=== PATIENT | female | born 1955 | race Caucasian/White ===

== ENCOUNTER 2020-05-24 15:39 | Outpatient (REF) | payer OTHER, SELFPAY ==
--- NOTE | ~2020-05-24 | MM_ITS ---
EXAMINATION: MM SCREENING DIGITAL BREAST TOMOSYNTHESIS, BILATERAL CLINICAL INFORMATION: Screening. Asymptomatic. The lifetime risk of breast cancer based on the Tyrer-Cuzick Model is 3%. COMPARISON: Mammography: 05/19/2019, 05/06/2018 TECHNIQUE: Digital breast tomosynthesis is performed in both the craniocaudal and mediolateral oblique views along with computer-aided detection (CAD). Synthesized 2D images are generated from the tomosynthesis. FINDINGS: There are scattered areas of fibroglandular density (ACR BI-RADS breast composition Category b). There are no significant masses, abnormal calcifications, or other abnormalities. Skin contours are unremarkable. No significant changes. MM/MM tomosynthesis screening BI IMPRESSION: No mammographic evidence of malignancy. ASSESSMENT: BI-RADS 1: Negative RECOMMENDATION: Routine annual mammography screening. This patient's information was entered into a reminder system with a target due date for their next mammogram.
== END 2020-05-24 15:40 | disposition home or self-care (01) ==
LOC: HO.MAMMO 15:39
PROVIDERS: Visit Provider Physician Assistant Medical
DX: Z12.31 Encounter for screening mammogram for malignant neoplasm of breast (principal)
CPT/HCPCS: 77063; 77067

== ENCOUNTER 2020-10-25 10:24 | Outpatient (REF) | payer MEDICARE, SELFPAY ==
--- NOTE | ~2020-10-25 | MM_ITS ---
EXAMINATION: BONE DENSITOMETRY CLINICAL INDICATION: Osteoporosis. COMPARISON: Previous BD dated 01/01/2009 and baseline BD dated 03/12/2005. TECHNIQUE: Using a [employer] DXA System (software version: 13.1) manufactured by [employer], dual-energy x-ray absorptiometry was performed of the lumbar spine and left hip. The images are of good technical quality. Summary results are attached. FINDINGS: AP SPINE L1-L4: Current: BMD 1.111 g/cm2, Z-score 1.1, T-score -0.6, normal, 8.6% decrease from previous, 8.5% decrease from baseline (<5% change is not significant). Prior: BMD 1.216 g/cm2. Baseline: BMD 1.214 g/cm2. LEFT FEMUR, NECK: Current: BMD 0.806 g/cm2, Z-score -0.1, T-score -1.7, osteopenia. Prior: BMD 0.933 g/cm2. Baseline: BMD 0.966 g/cm2. LEFT FEMUR, TOTAL: Current: BMD 0.858 g/cm2, Z-score 0.1, T-score -1.2, osteopenia, 11.3% decrease from previous, 12.3% decrease from baseline (<5% change is not significant). Prior: BMD 0.967 g/cm2. Baseline: BMD 0.978 g/cm2. IDENTIFIED RISK FACTORS: Early menopause, secondary osteoporosis, family history (parental hip fracture), thiazide, hysterectomy. HISTORY OF FRACTURE: None listed. MEDICATIONS: Calcium supplements or multivitamin, vitamin D. MM/XR DEXA axial skeleton IMPRESSION: 1. DIAGNOSIS: Osteopenia based on the lowest T-score value of -1.7 in the femoral neck applying World Health Organization criteria. 2. 10-YEAR FRACTURE RISK PREDICTION, FRAX: Major osteoporotic fracture (clinical spine, forearm, hip or shoulder) 17.3%. Hip fracture 1.8%. 3. Treatment Recommendations: NOF guidelines recommend consideration for treatment in postmenopausal women and men age 50 and older presenting with the following: -A hip or vertebral (clinical or morphometric) fracture. -T-score less than or equal to -2.5 at the femoral neck or spine after appropriate evaluation to exclude secondary causes. -Low bone mass at the hip or spine and a 10-year fracture probability by FRAX of greater than or equal to 3% for hip fracture or greater than or equal to 20% for major osteoporotic fracture based on the [place] adapted WHO algorithm. 4. Other Recommendations: All treatment decisions require clinical judgment and consideration of individual patient factors, including patient preferences, comorbidities, previous drug use, risk factors not captured in the FRAX model (e.g. frailty, falls, vitamin D deficiency, increased bone turnover, interval significant decline in bone density) and possible under or overestimation of fracture risk by FRAX. Additional medical evaluation for secondary cause of low bone mineral density may be appropriate. FUTURE SCAN RECOMMENDATION: People with diagnosed cases of osteoporosis or at high risk for fracture should have regular bone mineral density tests. For patients eligible for Medicare, routine testing is allowed once every 2 years. The testing frequency can be increased to one year for patients who have rapidly progressing disease, those who are receiving or discontinuing medical therapy to restore bone mass, or have additional risk factors.
== END 2020-10-25 10:25 | disposition home or self-care (01) ==
LOC: HO.MAMMO 10:24
PROVIDERS: Visit Provider Obstetrics & Gynecology
DX: Z13.820 Encounter for screening for osteoporosis (principal); Z78.0 Asymptomatic menopausal state; Z90.710 Acquired absence of both cervix and uterus; Z79.899 Other long term (current) drug therapy
CPT/HCPCS: 77080

== ENCOUNTER 2021-07-18 08:14 | Outpatient (REF) | payer MEDICARE, SELFPAY ==
--- NOTE | ~2021-07-18 | MM_ITS ---
EXAMINATION: MM SCREENING DIGITAL BREAST TOMOSYNTHESIS, BILATERAL CLINICAL INFORMATION: Screening. Asymptomatic. The lifetime risk of breast cancer based on the Tyrer-Cuzick Model is 4%. COMPARISON: Mammography: 05/24/2020, 05/19/2019, 05/06/2018 TECHNIQUE: Digital breast tomosynthesis is performed in both the craniocaudal and mediolateral oblique views along with computer-aided detection (CAD). Synthesized 2D images are generated from the tomosynthesis. Additional bilateral MLO views are provided. FINDINGS: There are scattered areas of fibroglandular density (ACR BI-RADS breast composition Category b). There are no significant masses, abnormal calcifications, or other abnormalities. The axilla and skin contours are unremarkable. MM/MM tomosynthesis screening BI IMPRESSION: No mammographic evidence of malignancy. ASSESSMENT: BI-RADS 1: Negative RECOMMENDATION: Routine annual mammography screening. This patient's information was entered into a reminder system with a target due date for their next mammogram.
== END 2021-07-18 08:15 | disposition home or self-care (01) ==
LOC: HO.MAMMO 08:14
PROVIDERS: PCP Family Medicine; Visit Provider Physician Assistant Medical
DX: Z12.31 Encounter for screening mammogram for malignant neoplasm of breast (principal)
CPT/HCPCS: 77063; 77067

== ENCOUNTER 2022-07-24 07:23 | Outpatient (REF) | payer MEDICARE, SELFPAY ==
--- NOTE | ~2022-07-24 | MM_ITS ---
EXAMINATION: MM SCREENING DIGITAL BREAST TOMOSYNTHESIS, BILATERAL CLINICAL INFORMATION: Screening. Asymptomatic. The lifetime risk of breast cancer based on the Tyrer-Cuzick Model is 4%. COMPARISON: Mammography: 07/18/2021, 05/24/2020, 05/19/2019 TECHNIQUE: Digital breast tomosynthesis is performed in both the craniocaudal and mediolateral oblique views along with computer-aided detection (CAD). Synthesized 2D images are generated from the tomosynthesis. FINDINGS: There are scattered areas of fibroglandular density (ACR BI-RADS breast composition Category b). There are no significant masses, abnormal calcifications, or other abnormalities. Parenchymal pattern is similar to prior studies. There is no developing density or architectural abnormality. The axilla and skin contours are unremarkable. No significant changes. MM/MM tomosynthesis screening BI IMPRESSION: No mammographic evidence of malignancy. ASSESSMENT: BI-RADS 1: Negative RECOMMENDATION: Routine annual mammography screening. This patient's information was entered into a reminder system with a target due date for their next mammogram.
== END 2022-07-24 07:24 | disposition home or self-care (01) ==
LOC: HO.MAMMO 07:23
PROVIDERS: PCP Family Medicine; Visit Provider Family Medicine
DX: Z12.31 Encounter for screening mammogram for malignant neoplasm of breast (principal)
CPT/HCPCS: 77063; 77067

== ENCOUNTER 2023-07-30 07:27 | Outpatient (REF) | payer MEDICARE, SELFPAY | END 2023-07-30 07:28 | disposition home or self-care (01) | LOC: HO.MAMMO 07:27 | PROVIDERS: PCP Family Medicine; Visit Provider Family Medicine | DX: Z12.31 Encounter for screening mammogram for malignant neoplasm of breast (principal) | CPT/HCPCS: 77063; 77067 ==

== ENCOUNTER → 2023-07-30 07:30 | Outpatient (BNV) | payer MEDICARE, SELFPAY | PROVIDERS: PCP Family Medicine; Visit Provider Radiology Diagnostic Radiology | DX: Z12.31 Encounter for screening mammogram for malignant neoplasm of breast (principal) | CPT/HCPCS: 77063; 77067 ==

== ENCOUNTER 2024-08-14 07:26 | Outpatient (REF) | payer MEDICARE, SELFPAY ==
--- OUTSIDE RECORDS SUMMARY | 2024-08-14 07:28 | XMS_ITS | Data Portability ---
Author Organization [facility], Main Office Address [address] [facility] [address] [place] [address] Care Team Providers Care Banquet Line Cook Name Role Phone DIPESH EMERY Lodge Attendant SY BURGESS Primary Care Provider RONDA CORTÉS Central Scheduler Assessment No assessment recorded. Plan of Treatment Reminders Order Date Submit Date Provider Last Modified By Organization Details Last Modified Time Details Appointments None record ed. Lab tanjaami josé miguel Garcia, 25-hyd suresh, total, serum 2024 025 DAVID [facility], [address], [place], [address], 5 06:11:28 HbA1c (hemog lobin A1c), blood 2024 025 DAVID [facility], [address] [place], [address], 5 06:11:27 BMP, serum or plasma 2024 025 DAVID [facility], [address], [place], [address], 5 06:11:26 magnes ium, serum or plasma 2023 024 DAVID [facility] (Centralized Electronic Ordering - All Locations), Patient Can Go To The Location Of Their Choice, [id number] 4 06:09:06 lipid panel, serum 2023 024 DAVID [facility], [address], [place], [address], 4 06:09:05 CBC w/ auto diff 2023 024 DAVID [facility], [address], [place], [address], 4 06:09:03 TSH, ultra- sensit ana maria, serum 2023 024 DAVID [facility], [address], [place], [address], 4 06:09:05 CMP, serum or plasma 2023 024 DAVID [facility] (Centralized Electronic Ordering - All Locations), Patient Can Go To The Location Of Their Choice, [id number] 4 06:09:04 lipid panel, serum 2022 023 DAVID [facility], [address], [address], [place], [address], 3 15:50:44 TSH, serum or plasma 2022 023 DAVID [facility], [address], [address], [place], [address], 3 16:05:55 CBC w/ auto diff 2022 023 DAVID [facility], [address], [address], [place], [address], 3 16:39:28 CMP, serum or plasma 2022 023 DAVID [facility], [address], [address], [place], [address], 3 15:50:42 magnes ium, serum or plasma 2022 023 DAVID [facility], [address], [address], [place], [address], 15:50:45 Referral None record ed. Procedures None record ed. Surgeries None record ed. Imaging None record ed. Medication Orders atorva statin 20 mg tablet 2023 024 [email or web address] [id number], [address] [place], [address], 17:25:52 albute rol sulfat e HFA 90 mcg/ac tuatio n aeroso l inhale r 2022 023 DAVID [id number], [address] [place], [address], 10:57:59 Patient TargetsNo targets recorded. Patient Instructions Encounter Date Encounter Id Patient Instructions Last Modified By Organization Details Last Modified Time 01/13/2023 [id number] advance care planning: care instructions [email or web address] Not available 01/13/2023 10:57:56 preventing falls : care instructions ckokar Not available 01/13/2023 10:57:56 medicare preventive services guide (female 74yrs and under) ckokar Not available 01/13/2023 10:57:56 When You Want to Lose Weight: Care Instructions ckokar Not available 01/13/2023 10:57:56 07/14/2023 [id number] high blood pressure: care instructions ckokar Not available 07/14/2023 13:54:32 learning about high blood pressure ckokar Not available 07/14/2023 13:54:32 01/17/2024 [id number] advance care planning: care instructions ckokar Not available 01/17/2024 09:57:56 high blood pressure: care instructions ckokar Not available 01/17/2024 09:57:55 learning about high blood pressure ckokar Not available 01/17/2024 09:57:55 preventing falls : care instructions ckokar Not available 01/17/2024 09:57:56 well visit, over 65: care instructions ckokar Not available 01/17/2024 09:57:55 07/03/2024 [id number] healthy upper back: exercises ckokar Not available 07/03/2024 10:04:00 high blood pressure: care instructions ckokar Not available 07/03/2024 09:56:45 learning about high blood pressure ckokar Not available 07/03/2024 09:56:45 high cholesterol : care instructions ckokar Not available 07/03/2024 09:56:45 Reason for Referral None Reported. Results Created Date Observation Date Name Description Value Unit Range Abnormal Flag Note LastModifiedBy Organization Detail LastModifiedTime 01/19/2001/18/2023 COMPR EHENS ANA MARIA METAB OLIC PANL glucose 92 mg/dL (70-99 ) Not Available [facility] (Centralized Electronic Ordering - All Locations) Patient Can Go To The Location Of Their Choice, 01/18/2023 15:50:42 01/19/2001/18/2023 COMPR EHENS ANA MARIA METAB OLIC PANL BUN 20 mg/dL (8-23) Not Available [facility] (Centralized Electronic Ordering - All Locations) Patient Can Go To The Location Of Their Choice, 01/18/2023 15:50:42 01/19/2001/18/2023 COMPR EHENS ANA MARIA METAB OLIC PANL creatinine 0.7 mg/dL (0.5-1 .0) Not Available [facility] ([facility] Ordering - All Locations) Patient Can Go To The Location Of Their Choice, 01/18/2023 15:50:42 01/19/2001/18/2023 COMPR EHENS ANA MARIA METAB OLIC PANL sodium 137 mmol/ L (133-1 45) Not Available [facility] (Centralized [facility] Ordering - All Locations) Patient Can Go To The Location Of Their Choice, 01/18/2023 15:50:42 01/19/2001/18/2023 COMPR EHENS ANA MARIA METAB OLIC PANL potassium 4.3 mmol/ L (3.6-5 .2) Not Available [facility] (Centralized Electronic Ordering - All Locations) Patient Can Go To The Location Of Their Choice, 01/18/2023 15:50:42 01/19/2001/18/2023 COMPR EHENS ANA MARIA METAB OLIC PANL chloride 101 mmol/ L (98-10 7) Not Available [facility] (Centralized Electronic Ordering - All Locations) Patient Can Go To The Location Of Their Choice, 01/18/2023 15:50:42 01/19/2001/18/2023 COMPR EHENS ANA MARIA METAB OLIC PANL bicarbonate 26 mmol/ L (22-29 ) Not Available [facility] (Centralized Electronic Ordering - All Locations) Patient Can Go To The Location Of Their Choice, 01/18/2023 15:50:42 01/19/2001/18/2023 COMPR EHENS ANA MARIA METAB OLIC PANL anion gap 10 (4-17) Not Available [facility] ([facility] Ordering - All Locations) Patient Can Go To The Location Of Their Choice, 01/18/2023 15:50:42 01/19/2001/18/2023 COMPR EHENS ANA MARIA METAB OLIC PANL albumin 4.6 gm/dL (3.4-4 .8) Not Available [facility] (Centralized Electronic Ordering - All Locations) Patient Can Go To The Location Of Their Choice, 01/18/2023 15:50:42 01/19/2001/18/2023 COMPR EHENS ANA MARIA METAB OLIC PANL calcium 9.4 mg/dL (8.6-1 0.5) Not Available [facility] ([facility] Ordering - All Locations) Patient Can Go To The Location Of Their Choice, 01/18/2023 15:50:42 01/19/2001/18/2023 COMPR EHENS ANA MARIA METAB OLIC PANL bilirubin,to raquel 0.5 mg/dL (0-1.2 ) Not Available [facility] ([facility]ized [facility] Ordering - All Locations) Patient Can Go To The Location Of Their Choice, 01/18/2023 15:50:42 01/19/2001/18/2023 COMPR EHENS ANA MARIA METAB OLIC PANL total protein 7.4 gm/dL (6.2-8 .2) Not Available [facility] (Centralized Electronic Ordering - All Locations) Patient Can Go To The Location Of Their Choice, 01/18/2023 15:50:42 01/19/2001/18/2023 COMPR EHENS ANA MARIA METAB OLIC PANL Ag ratio 1.6 Not Available [facility] (Centralized [facility] Ordering - All Locations) Patient Can Go To The Location Of Their Choice, 01/18/2023 15:50:42 01/19/2001/18/2023 COMPR EHENS ANA MARIA METAB OLIC PANL AST 23 U/L (0-32) Not Available [facility] ([facility] Ordering - All Locations) Patient Can Go To The Location Of Their Choice, 01/18/2023 15:50:42 01/19/2001/18/2023 COMPR EHENS ANA MARIA METAB OLIC PANL alk phos 50 U/L (35-10 4) Not Available [facility] ([facility] Ordering - All Locations) Patient Can Go To The Location Of Their Choice, 01/18/2023 15:50:42 01/19/2001/18/2023 COMPR EHENS ANA MARIA METAB OLIC PANL ALT 19 U/L (0-33) Not Available [facility] ([facility] Ordering - All Locations) Patient Can Go To The Location Of Their Choice, 01/18/2023 15:50:42 01/19/2001/18/2023 COMPR EHENS ANA MARIA METAB OLIC PANL estimated GFR creatinine 94 mL/mi n/1.7 3_M2 Creat inine based estim ated glome rular filtr ation (eGFR ) in adult s is calcu lated using the Natio nal Kidne y Found ation recom charu d 2020 CKD-E PI equat ion. Estim ates GFR from serum creat inine , age and sex. Not Available [facility] ([facility] Ordering - All Locations) Patient Can Go To The Location Of Their Choice, 01/18/2023 15:50:42 01/19/2001/18/2023 LIPID PANEL cholesterol, total 205 mg/dL (<200) high Not Available [facility] ([facility] - All Locations) Patient Can Go To The Location Of Their Choice, 01/18/2023 15:50:44 01/19/2001/18/2023 LIPID PANEL triglyceride 98 mg/dL (<150) Not Available [facility] ([facility] Locations) Patient Can Go To The Location Of Their Choice, 01/18/2023 15:50:44 01/19/2001/18/2023 LIPID PANEL HDL chol 76 mg/dL (>39) Not Available [facility] ([facility] Ordering - All Locations) Patient Can Go To The Location Of Their Choice, 01/18/2023 15:50:44 01/19/2001/18/2023 LIPID PANEL LDL cholesterol, calculated 109 mg/dL (0-130 ) Not Available [facility] ([facility] Ordering - All Locations) Patient Can Go To The Location Of Their Choice, 01/18/2023 15:50:44 01/19/2001/18/2023 LIPID PANEL non HDL cholesterol (calc) 129 mg/dL (<160) Not Available [facility] ([facility] Ordering - All Locations) Patient Can Go To The Location Of Their Choice, 01/18/2023 15:50:44 01/19/2001/18/2023 MAGNE SIUM magnesium 2.1 mg/dL (1.6-2 .3) Not Available [facility] ([facility] Ordering - All Locations) Patient Can Go To The Location Of Their Choice, 01/18/2023 15:50:45 01/19/2001/18/2023 TSH WITH REFLE X TO FT4 TSH 1.87 uIU/m L (0.4-4 .2) Not Available [facility] ([facility] Ordering - All Locations) Patient Can Go To The Location Of Their Choice, 01/18/2023 16:05:55 01/19/2001/18/2023 COMPL ETE BLOOD COUNT WBC 6.5 K/mm3 (4.0-1 1.0) Not Available [facility] ([facility] Ordering - All Locations) Patient Can Go To The Location Of Their Choice, 01/18/2023 16:39:28 01/19/2001/18/2023 COMPL ETE BLOOD COUNT RBC 4.56 M/mm3 (4.20- 5.40) Not Available [facility] ([facility] Ordering - All Locations) Patient Can Go To The Location Of Their Choice, 01/18/2023 16:39:28 01/19/2001/18/2023 COMPL ETE BLOOD COUNT HGB 13.4 gm/dL (11.7- 15.5) Not Available [facility] ([facility] Ordering - All Locations) Patient Can Go To The Location Of Their Choice, 01/18/2023 16:39:28 01/19/2001/18/2023 COMPL ETE BLOOD COUNT HCT 41.4 % (35.7- 45.8) Not Available [facility] ([facility] Ordering - All Locations) Patient Can Go To The Location Of Their Choice, 01/18/2023 16:39:28 01/19/2001/18/2023 COMPL ETE BLOOD COUNT MCV 90.8 fL (80.0- 100.0) Not Available [facility] ([facility] Ordering - All Locations) Patient Can Go To The Location Of Their Choice, 01/18/2023 16:39:28 01/19/2001/18/2023 COMPL ETE BLOOD COUNT MCH 29.4 pg (27.0- 34.0) Not Available [facility] ([facility] Ordering - All Locations) Patient Can Go To The Location Of Their Choice, 01/18/2023 16:39:28 01/19/2001/18/2023 COMPL ETE BLOOD COUNT MCHC 32.4 g/dL (33.0- 37.0) low Not Available [facility] ([facility] Ordering - All Locations) Patient Can Go To The Location Of Their Choice, 01/18/2023 16:39:28 01/19/2001/18/2023 COMPL ETE BLOOD COUNT plt 318 K/mm3 (150-4 60) Not Available [facility] ([facility] Ordering - All Locations) Patient Can Go To The Location Of Their Choice, 01/18/2023 16:39:28 01/19/2001/18/2023 COMPL ETE BLOOD COUNT RDW-SD 45.1 fL (<47.0 ) Not Available [facility] ([facility] Ordering - All Locations) Patient Can Go To The Location Of Their Choice, 01/18/2023 16:39:28 01/19/2001/18/2023 COMPL ETE BLOOD COUNT MPV 9.9 fL (9.4-1 2.4) Not Available [facility] ([facility] Ordering - All Locations) Patient Can Go To The Location Of Their Choice, 01/18/2023 16:39:28 01/19/2001/18/2023 COMPL ETE BLOOD COUNT automated NRBC 0.0 #/100 _WBC' s Not Available [facility] ([facility] Ordering - All Locations) Patient Can Go To The Location Of Their Choice, [id number] 01/18/2023 16:39:28 01/19/2001/18/2023 COMPL ETE BLOOD COUNT abs. NRBC 0.0 K/mm3 Not Available [facility] ([facility] Ordering - All Locations) Patient Can Go To The Location Of Their Choice, [id number] 01/18/2023 16:39:28 01/18/2001/18/2024 CBC WITH DIFFE RENTI AL/PL ATELE T WBC 6.5 x10e3 /uL 3.4-10 .8 normal Not Available [facility] ([facility]) [address] [place], [address], 01/19/2024 06:09:03 01/18/2001/18/2024 CBC WITH DIFFE RENTI AL/PL ATELE T RBC 4.24 x10e6 /uL 3.77-5 .28 normal Not Available [facility] ([facility]) [address] [place], [address], 01/19/2024 06:09:03 01/18/2001/18/2024 CBC WITH DIFFE RENTI AL/PL ATELE T hemoglobin 12.7 g/dL 11.1-1 5.9 normal Not Available [facility] ([facility]) [address] [place], [address], 01/19/2024 06:09:03 01/18/2001/18/2024 CBC WITH DIFFE RENTI AL/PL ATELE T hematocrit 39.5 % 34.0-4 6.6 normal Not Available [facility] ([facility]) [address] [place], [address], 01/19/2024 06:09:03 01/18/2001/18/2024 CBC WITH DIFFE RENTI AL/PL ATELE T MCV 93 fL 79-97 normal Not Available [facility] ([facility]) [address] [facility], [place], [address], 01/19/2024 06:09:03 01/18/2001/18/2024 CBC WITH DIFFE RENTI AL/PL ATELE T MCH 30.0 pg 26.6-3 3.0 normal Not Available [facility] ([facility]) [address] [facility], [place], [address], 01/19/2024 06:09:03 01/18/2001/18/2024 CBC WITH DIFFE RENTI AL/PL ATELE T MCHC 32.2 g/dL 31.5-3 5.7 normal Not Available [facility] ([facility]) [address] [facility], [place], [address], 01/19/2024 06:09:03 01/18/2001/18/2024 CBC WITH DIFFE RENTI AL/PL ATELE T RDW 12.4 % 11.7-1 5.4 Not Available [facility] ([facility]) [address] [place], [address], 01/19/2024 06:09:03 01/18/2001/18/2024 CBC WITH DIFFE RENTI AL/PL ATELE T platelets 285 x10e3 /uL 150-45 0 normal Not Available [facility] ([facility]) [address] [place], [address], 01/19/2024 06:09:03 01/18/2001/18/2024 CBC WITH DIFFE RENTI AL/PL ATELE T neutrophils 54 % not estab. normal Not Available [facility] ([facility]) [address] [place], [address], 01/19/2024 06:09:03 01/18/20 24 01/18/2024 CBC WITH DIFFE RENTI AL/PL ATELE T lymphs 32 % not estab. normal Not Available [facility] ([facility]) [address] [facility], [place], [address], 01/19/2024 06:09:03 01/18/2001/18/2024 CBC WITH DIFFE RENTI AL/PL ATELE T monocytes 9 % not estab. normal Not Available [facility] ([facility]) [address] [place], [address], 01/19/2024 06:09:03 01/18/2001/18/2024 CBC WITH DIFFE RENTI AL/PL ATELE T eos 4 % not estab. normal Not Available [facility] ([facility]) [address] [place], [address], 01/19/2024 06:09:03 01/18/20 24 01/18/2024 CBC WITH DIFFE RENTI AL/PL ATELE T basos 1 % not estab. normal Not Available [facility] ([facility]) [address] [facility], [place], [address], 01/19/2024 06:09:03 01/18/2001/18/2024 CBC WITH DIFFE RENTI AL/PL ATELE T immature cells DRINK MIXER Not Available [facility] ([facility]) [address] [place], [address], 01/19/2024 06:09:03 01/18/2001/18/2024 CBC WITH DIFFE RENTI AL/PL ATELE T neutrophils (absolute) 3.6 x10e3 /uL 1.4-7. 0 normal Not Available [facility] ([facility]) [address] [place], [address], 01/19/2024 06:09:03 01/18/2001/18/2024 CBC WITH DIFFE RENTI AL/PL ATELE T lymphs (absolute) 2.1 x10e3 /uL 0.7-3. 1 normal Not Available [facility] ([facility]) [address] [facility] [place], [address], 01/19/2024 06:09:03 01/18/2001/18/2024 CBC WITH DIFFE RENTI AL/PL ATELE T monocytes(ab solute) 0.6 x10e3 /uL 0.1-0. 9 normal Not Available [facility] ([facility]) [address] [facility], [place], [address], 01/19/2024 06:09:03 01/18/2001/18/2024 CBC WITH DIFFE RENTI AL/PL ATELE T eos (absolute) 0.3 x10e3 /uL 0.0-0. 4 normal Not Available [facility] ([facility]) [address] [facility], [place], [address], 01/19/2024 06:09:03 01/18/20 24 01/18/2024 CBC WITH DIFFE RENTI AL/PL ATELE T baso (absolute) 0.0 x10e3 /uL 0.0-0. 2 normal Not Available [facility] ([facility]) [address] [facility], [place], [address], 01/19/2024 06:09:03 01/18/20 24 01/18/2024 CBC WITH DIFFE RENTI AL/PL ATELE T immature granulocytes 0 % not estab. Not Available [facility] ([facility]) [address] [facility], [place], [address], 01/19/2024 06:09:03 01/18/20 24 01/18/2024 CBC WITH DIFFE RENTI AL/PL ATELE T immature grans (abs) 0.0 x10e3 /uL 0.0-0. 1 Not Available [facility] ([facility]) [address] [facility], [place], [address], 01/19/2024 06:09:03 01/18/20 24 01/18/2024 CBC WITH DIFFE RENTI AL/PL ATELE T NRBC DRINK MIXER Not Available [facility] ([facility]) [address], [place], [address], 01/19/2024 06:09:03 01/18/2001/18/2024 CBC WITH DIFFE RENTI AL/PL ATELE T hematology comments: DRINK MIXER Not Available [facility] ([facility]) [address] [facility], [place], [address], 01/19/2024 06:09:03 01/18/2001/19/2024 COMP. METAB OLIC PANEL (14) glucose 106 mg/dL 70-99 above high normal Not Available [facility] ([facility]) [address], [place], [address], 01/19/2024 06:09:04 01/18/20 24 01/19/2024 COMP. METAB OLIC PANEL (14) BUN 22 mg/dL 8-27 normal Not Available [facility] ([facility]) [address], [place], [address], 01/19/2024 06:09:04 01/18/2001/19/2024 COMP. METAB OLIC PANEL (14) creatinine 0.69 mg/dL 0.57-1 .00 normal Not Available [facility] ([facility]) [address] [facility], [place], [address], 01/19/2024 06:09:04 01/18/20 24 01/19/2024 COMP. METAB OLIC PANEL (14) eGFR 93 mL/mi n/1.7 3 >59 normal Not Available [facility] ([facility]) [address] [facility] [place], [address], 01/19/2024 06:09:04 01/18/2001/19/2024 COMP. METAB OLIC PANEL (14) BUN/creatini ne ratio 32 12-28 above high normal Not Available [facility] ([facility]) [address] [facility], [place], [address], 01/19/2024 06:09:04 01/18/20 24 01/19/2024 COMP. METAB OLIC PANEL (14) sodium 136 mmol/ L 134-14 4 normal Not Available [facility] ([facility]) [address] [facility] [place], [address], 01/19/2024 06:09:04 01/18/20 24 01/19/2024 COMP. METAB OLIC PANEL (14) potassium 4.7 mmol/ L 3.5-5. 2 normal Not Available [facility] ([facility]) [address] [facility] [place], [address], 01/19/2024 06:09:04 01/18/2001/19/2024 COMP. METAB OLIC PANEL (14) chloride 98 mmol/ L 96-106 normal Not Available [facility] ([facility]) [address] [facility] [place], [address], 01/19/2024 06:09:04 01/18/20 24 01/19/2024 COMP. METAB OLIC PANEL (14) carbon dioxide, total 22 mmol/ L 20-29 normal Not Available [facility] ([facility]) [address] [facility] [place], [address], 01/19/2024 06:09:04 01/18/2001/19/2024 COMP. METAB OLIC PANEL (14) calcium 9.4 mg/dL 8.7-10 .3 normal Not Available [facility] ([facility]) [address] [facility] [place], [address], 01/19/2024 06:09:04 01/18/2001/19/2024 COMP. METAB OLIC PANEL (14) protein, total 7.2 g/dL 6.0-8. 5 normal Not Available [facility] ([facility]) [address] [facility] [place], [address], 01/19/2024 06:09:04 01/18/2001/1801/19/2024 COMP. METAB OLIC PANEL (14) albumin 4.2 g/dL 3.9-4. 9 normal Not Available [facility] ([facility]) [address] [facility] [place], [address], 01/19/2024 06:09:04 01/18/20 24 01/19/2024 COMP. METAB OLIC PANEL (14) globulin, total 3.0 g/dL 1.5-4. 5 Not Available [facility] ([facility]) [address] [facility] [place], [address], 01/19/2024 06:09:04 01/18/2001/19/2024 COMP. METAB OLIC PANEL (14) bilirubin, total 0.6 mg/dL 0.0-1. 2 normal Not Available [facility] ([facility]) [address] [facility] [place], [address], 01/19/2024 06:09:04 01/18/20 24 01/19/2024 COMP. METAB OLIC PANEL (14) alkaline phosphatase 49 IU/L 44-121 normal Not Available [facility] ([facility]) [address] [facility], [place], [address], 01/19/2024 06:09:04 01/18/20 24 01/19/2024 COMP. METAB OLIC PANEL (14) AST (SGOT) 23 IU/L 0-40 normal Not Available [facility] ([facility]) [address] [facility] [place], [address], 01/19/2024 06:09:04 01/18/2001/19/2024 COMP. METAB OLIC PANEL (14) ALT (SGPT) 16 IU/L 0-32 normal Not Available [facility] ([facility]) [address] [facility] [place], [address], 01/19/2024 06:09:04 01/18/20 24 01/19/2024 LIPID PANEL cholesterol, total 200 mg/dL 100-19 9 above high normal Not Available [facility] ([facility]) [address] [facility] [place], [address], 01/19/2024 06:09:05 01/18/2001/19/2024 LIPID PANEL triglyceride s 103 mg/dL 0-149 normal Not Available [facility] ([facility]) [address] [facility] [place], [address], 01/19/2024 06:09:05 01/18/2001/19/2024 LIPID PANEL HDL cholesterol 68 mg/dL >39 normal Not Available [facility] ([facility]) [address] [facility] [place], [address], 01/19/2024 06:09:05 01/18/2001/19/2024 LIPID PANEL VLDL cholesterol quincy 18 mg/dL 5-40 Not Available [facility] ([facility]) [address] [facility], [place], [address], 01/19/2024 06:09:05 01/18/2001/19/2024 LIPID PANEL LDL chol calc ([facility]) 114 mg/dL 0-99 above high normal Not Available [facility] ([facility]) [address] [facility], [place], [address], 01/19/2024 06:09:05 01/18/2001/19/2024 LIPID PANEL LDL calc comment: DRINK MIXER Not Available [facility] ([facility]) [address] [facility], [place], [address], 01/19/2024 06:09:05 01/18/2001/19/2024 TSH RFX ON ABNOR MAL TO FREE T4 TSH 2.000 uIU/m L 0.450- 4.500 normal Not Available [facility] ([facility]) [address] [place], [address], 01/19/2024 06:09:05 01/18/2001/1801/19/2024 MAGNE SIUM magnesium 2.1 mg/dL 1.6-2. 3 normal Not Available [facility] ([facility]) [address] [place], [address], 01/19/2024 06:09:06 01/18/20 24 01/19/2024 HEMOG LOBIN A1C hemoglobin A1C 5.9 % 4.8-5. 6 above high normal Predi abete s: 5.7 - 6.4 Diabe ramy: >6.4 Glyce reinta contr ol for adult s with diabe ramy: <7.0 Not Available [facility] ([facility]) [address] [facility], [place], [address], 01/19/2024 22:06:07 01/18/2001/19/2024 MOO EN AUTHO RIZAT ION written authorizatio n Commen t Moo en Autho rizat ion Recei susan. Autho rizat ion recei susan from [facility] FELIPE BURGESS for Link Reque st on 01-18 Logge d by Toni Ley Not Available [facility] ([facility]) [address] [place], [address], 01/20/2024 18:06:06 01/18/2001/19/2024 MOO EN AUTHO RIZAT ION written authorizatio n Commjerald t Moo en Autho rizat ion Recei susan. Autho rizat ion recei susan from [facility] FELIPE BURGESS for Link Reque st on 01-18 Logge d by Ishan Clifton Not Available [facility] ([facility]) [address] [facility], [place], [address], 01/19/2024 22:06:08 01/18/20 24 01/20/2024 VITAM IN D, 25-HY DROXY vitamin D, 25-hydroxy 28.9 NG/mL 30.0-1 00.0 below low normal Vitam in D defic iency has been defin ed by the Insti tute of Medic ine and an Endoc rine Socie ty pract ice guide line as a level of serum 25-OH vitam in D less than 20 ng/mL (1,2) . The Endoc rine Socie ty went on to furth er defin e vitam in D insuf ficie ncy as a level betwe en 21 and 29 ng/mL (2). 1. IOM (Inst itute of Medic ine). 2010. Dieta ry refer ence ramon es for calci um and D. Suyapa abbott [place]: [facility] . 2. Sherin ramon MF, Sarah carlton [place], Supriya off-F errar i ASH, et al. Evalu ation , treat ment, and preve ntion of vitam in D defic iency : an Endoc rine Socie ty clini [place] pract ice guide line. JCEM. 2010; 96(7) :1911 -30. Not Available [facility] ([facility]) [address] [place], [address], 01/20/2024 18:06:06 08/01/19 25 08/01/2024 BASIC METAB OLIC PANEL (8) glucose 98 mg/dL 70-99 normal Not Available [facility] ([facility]) [address] [place], [address], 08/01/2024 06:11:26 08/01/19 25 08/01/2024 BASIC METAB OLIC PANEL (8) BUN 20 mg/dL 8-27 normal Not Available [facility] ([facility]) [address] [place], [address], 08/01/2024 06:11:26 08/01/19 25 08/01/2024 BASIC METAB OLIC PANEL (8) creatinine 0.69 mg/dL 0.57-1 .00 normal Not Available [facility] ([facility]) [address] [place], [address], 08/01/2024 06:11:26 08/01/19 25 08/01/2024 BASIC METAB OLIC PANEL (8) eGFR 93 mL/mi n/1.7 3 >59 normal Not Available [facility] ([facility]) [address] [facility] [place], [address], 08/01/2024 06:11:26 08/01/19 25 08/01/2024 BASIC METAB OLIC PANEL (8) BUN/creatini ne ratio 29 12-28 above high normal Not Available [facility] ([facility]) [address] [facility] [place], [address], 08/01/2024 06:11:26 08/01/19 25 08/01/2024 BASIC METAB OLIC PANEL (8) sodium 138 mmol/ L 134-14 4 normal Not Available [facility] ([facility]) [address] [facility] [place], [address], 08/01/2024 06:11:26 08/01/19 25 08/01/2024 BASIC METAB OLIC PANEL (8) potassium 4.2 mmol/ L 3.5-5. 2 normal Not Available [facility] ([facility]) [address] [facility] [place], [address], 08/01/2024 06:11:26 08/01/19 25 08/01/2024 BASIC METAB OLIC PANEL (8) chloride 100 mmol/ L 96-106 normal Not Available [facility] ([facility]) [address] [place], [address], 08/01/2024 06:11:26 08/01/19 25 08/01/2024 BASIC METAB OLIC PANEL (8) carbon dioxide, total 19 mmol/ L 20-29 below low normal Not Available [facility] ([facility]) [address] [place], [address], 08/01/2024 06:11:26 08/01/19 25 08/01/2024 BASIC METAB OLIC PANEL (8) calcium 9.4 mg/dL 8.7-10 .3 normal Not Available [facility] ([facility]) [address] [facility] [place], [address], 08/01/2024 06:11:26 08/01/1907/31/2024 HEMOG LOBIN A1C hemoglobin A1C 5.6 % 4.8-5. 6 normal Predi abete s: 5.7 - 6.4 Diabe ramy: >6.4 Glyce renita contr ol for adult s with diabe ramy: <7.0 Not Available [facility] ([facility]) [address] [facility], [place], [address], 08/01/2024 06:11:27 08/01/19 25 08/01/2024 VITAM IN D, 25-HY DROXY vitamin D, 25-hydroxy 39.2 NG/mL 30.0-1 00.0 Vitam in D defic iency has been defin ed by the Insti tute of Medic ine and an Endoc rine Socie ty pract ice guide line as a level of serum 25-OH vitam in D less than 20 ng/mL (1,2) . The Endoc rine Socie ty went on to furth er defin e vitam in D insuf ficie ncy as a level betwe en 21 and 29 ng/mL (2). 1. IOM (Inst itute of Medic ine). 2009. Dieta ry refer ence intak es for calci um and D. Suyapa abbott [place]: [facility] . 2. Sherin ramon MF, Sarah carlton [place], Supriya off-F errar i ASH, et al. Evalu ation , treat ment, and preve ntion of vitam in D defic iency : an Endoc rine Socie ty clini [place] pract ice guide line. JCEM. 2010; 96(7) :1911 -30. Not Available [facility] ([facility]) [address] [facility], [place], [address], 08/01/2024 06:11:28 08/01/19 25 08/01/2024 LIPID PANEL cholesterol, total 203 mg/dL 100-19 9 above high normal Not Available [facility] ([facility]) [address] [place], [address], 08/01/2024 06:11:30 08/01/19 25 08/01/2024 LIPID PANEL triglyceride s 114 mg/dL 0-149 normal Not Available [facility] ([facility]) [address] [place], [address], 08/01/2024 06:11:30 08/01/19 25 08/01/2024 LIPID PANEL HDL cholesterol 68 mg/dL >39 normal Not Available [facility] ([facility]) [address] [facility] [place], [address], 08/01/2024 06:11:30 08/01/19 25 08/01/2024 LIPID PANEL VLDL cholesterol quin[place] 20 mg/dL 5-40 Not Available [facility] ([facility]) [address] [facility] [place], [address], 08/01/2024 06:11:30 08/01/19 25 08/01/2024 LIPID PANEL LDL chol calc ([facility]) 115 mg/dL 0-99 above high normal Not Available [facility] ([facility]) [address] [facility] [place], [address], 08/01/2024 06:11:30 08/01/19 25 08/01/2024 LIPID PANEL LDL calc comment: DRINK MIXER Not Available [facility] ([facility]) [address] [facility] [place], [address], 08/01/2024 06:11:30 08/01/19 25 08/01/2024 ALT+A ST AST (SGOT) 23 IU/L 0-40 normal Not Available [facility] ([facility]) [address] [facility] [place], [address], 08/01/2024 06:11:30 08/01/19 25 08/01/2024 ALT+A ST ALT (SGPT) 17 IU/L 0-32 normal Not Available [facility] ([facility]) [address], [place], [address], 08/01/2024 06:11:30 07/29/19 23 07/24/2022 MAMMO , scree gina, bilat eral No observ ation record ed. [address] [place], [address], 07/30/2022 15:00:40 08/12/19 24 07/30/2023 MAMMO , scree gina, digit al, bilat eral No observ ation record ed. [address] [place], [address], 08/18/2023 08:47:39 Result Notes None recorded. Problems Name Problem SNOMED Code Status Onset Date Resolution Date Notes Provider Name and Address Organization Details Recorded Time Acute cystitis 99310070 Completed 201210/17/2013 RECORDED 05/03/19 13 9:42AM BY ALIX BRADLEY MA, ANNOTATI ON/WEST baker [facility] 5 11:14:11 Allergic rhinitis 97140500 Completed 201210/17/2013 RECORDED 05/03/19 13 9:41AM BY ALIX BRADLEY MA, ANNOTATI ON/WEST baker [facility] 5 11:14:11 Patient status finding [id number] Completed 201203/16/2017 RECORDED 05/03/19 13 9:42AM BY ALIX BRADLEY MA, OFFICE VISIT Анна baker [facility] 7 14:32:40 Asthma 979708290 Completed 201209/05/2019 Sy Burgess MD [address], [place], [address] , [facility] 1 14:07:45 Screenin g for malignan t neoplasm of breast Completed 201210/17/2013 RECORDED 05/03/19 13 9:41AM BY ALIX BRADLEY MA, ANNOTATI ON/ADDEN DUM Matthias D'Alessand ro null, [facility] 5 11:14:11 Candidia sis of mouth 39088116 Completed 201210/17/2013 RECORDED 05/03/19 13 9:42AM BY ALIX BRADLEY MA, ANNOTATI ON/ADDEN DUM Matthias D'Alessand ro null, [facility] 5 11:14:11 Screenin g for malignan t neoplasm of cervix Completed 201210/17/2013 RECORDED 05/03/19 13 9:41AM BY ALIX BRADLEY MA, ANNOTATI ON/ADDEN DUM Matthias D'Alessand ro null, [facility] 5 11:14:11 Bordetel losis Completed 200810/17/2013 RECORDED 05/03/19 09 10:20AM BY ZHENG GALINDO ON/ADDEN DUM Matthias D'Alessand ro null, [facility] 5 11:14:11 Cough 50652333 Completed 200810/17/2013 RECORDED 05/03/19 09 10:20AM BY ZHENG GALINDO ON/ADDEN DUM Matthias Garcia'Alessand ro null, [facility] 5 11:14:11 Dysuria 76863541 Completed 201203/16/2017 IMPRESSI ON: PT ADVISED TO CALL INB/JAZMÍN E.; RECORDED 08/01/19 13 11:30AM BY ABHIJIT Martell MD, PHONE CANDELARIA baker, [facility] 7 14:33:02 Elevated blood-pr essure reading without diagnosi s of hyperten whitney 808403484 Completed 201204/08/2018 Deyanira Weldon PA-C [address] [place], [address] , [facility] 9 13:16:26 Influenz a vaccine needed [id number] 06 Completed 200810/17/2013 RECORDED 05/03/19 09 10:26AM BY LISANDRO CALLES, JOSSELINEIC AL SUMMARY Matthias baker, [facility] 5 11:14:11 Adult health examinat ion Completed 201203/16/2017 RECORDED 05/03/19 13 9:43AM BY ALIX BRADLEY MA, OFFICE VISIT Анна baker, [facility] 7 14:32:50 General examinat ion of patient Completed 200810/17/2013 RECORDED 05/03/19 09 10:20AM BY LISANDRO CALLES, AIYANAATI ON/WEST baker, [facility] 5 11:14:11 Pure hypercho lesterol emia 428660946 Completed 201204/08/2018 Deyanira Weldon PA-C [address] [facility] [place] [place] [address], [place], [address] , [facility] 9 13:14:12 Hyperlip idemia 93271294 Active 2012 Not Available [facility] 1 11:59:24 Impaired fasting glycemia 272136663 Completed 201210/17/2013 RECORDED 05/03/19 13 9:42AM BY ALIX BRADLEY MA, ANNOTATI ON/WEST Burgess MD [address] [facility] [place] [place] [address], [place], [address] , [facility] 2 08:05:45 Administ ration of bacteria l and viral vaccine Completed 200810/17/2013 RECORDED 05/03/19 09 10:56AM BY AMRIT MCKEON AL SUMMARY Matthias baker, [facility] 5 11:14:11 Pneumoni a 186168073 Completed 201210/17/2013 RECORDED 05/03/19 13 9:42AM BY ALIX BRADLEY MA, ZHENG ON/ADDEN DUM Matthias tanner null, [facility] 5 11:14:11 Pre-surg sanjay evaluati on Completed 201210/17/2013 RECORDED 05/03/19 13 9:41AM BY ALIX BRADLEY MA, ZHENG ON/ADDEN DUM Matthias tanner null, [facility] 5 11:14:11 Calcium deposits in tendon 314595364 Completed 201201/13/2023 Sy Burgess MD [address] [facility] [place] [place] [address], [place], [address] , [facility] 3 10:52:17 Adult health examinat ion Completed 201210/17/2013 RECORDED 05/03/19 13 9:41AM BY ALIX BRADLEY MA, ANNOTATI ON/ADDEN DUM Анна Day MA null, [facility] 7 14:32:50 Canceled operativ e procedur e 64330098 Completed 201110/17/2013 DATE: 04/05/19 12; RECORDED 05/03/19 13 9:40AM BY ALIX BRADLEY MA, ANNOTATI ON/ADDEN DUM Matthias tanner null, [facility] 5 11:14:11 Urinary tract infectio us disease 24782065 Completed 201210/17/2013 RECORDED 05/03/19 13 9:41AM BY ALIX BRADLEY MA, ZHENG ON/ADDEN DUM Matthias tanner null, [facility] 5 11:14:11 Uterovag inal prolapse 49266172 Completed 201210/17/2013 RECORDED 05/03/19 13 9:41AM BY ALIX BRADLEY MA, ANNOTATI ON/ADDEN DUM Matthias D'Alessand ro null, [facility] 5 11:14:11 Acute cystitis 87609724 Completed 201211/06/2013 RECORDED 05/03/19 13 9:42AM BY ALIX BRADLEY MA, ANNOTATI ON/ADDEN DUM Matthias D'Alessand ro null, [facility] 5 11:14:11 Allergic rhinitis 56152087 Completed 201211/06/2013 RECORDED 05/03/19 13 9:41AM BY ALIX BRADLEY MA, ANNOTATI ON/ADDEN DUM Matthias D'Alessand ro null, [facility] 5 11:14:11 Screenin g for malignan t neoplasm of breast Completed 201211/06/2013 RECORDED 05/03/19 13 9:41AM BY ALIX BRADLEY MA, ANNOTATI ON/ADDEN DUM Matthias D'Alessand ro null, [facility] 5 11:14:11 Candidia sis of mouth 31296584 Completed 201211/06/2013 RECORDED 05/03/19 13 9:42AM BY ALIX BRADLEY MA, ANNOTATI ON/ADDEN DUM Matthias D'Alessand ro null, [facility] 5 11:14:11 Screenin g for malignan t neoplasm of cervix Completed 201211/06/2013 RECORDED 05/03/19 13 9:41AM BY ALIX BRADLEY MA, ANNOTATI ON/ADDEN DUM Matthias D'Alessand ro null, [facility] 5 11:14:11 Bordavid delatorre Completed 200811/06/2013 RECORDED 05/03/19 09 10:20AM BY LISANDRO CALLES, AIYANAATI ON/ADDEN DUM Matthias D'Alessand ro null, [facility] 5 11:14:11 Cough 78038734 Completed 200811/06/2013 RECORDED 05/03/19 09 10:20AM BY ZHENG GALINDO ON/ADDEN DUM Matthias Silva ro null, [facility] 5 11:14:11 Influenz a vaccine needed [id number] 06 Completed 200811/06/2013 RECORDED 05/03/19 09 10:26AM BY LISANDRO CALLES, HISTORIC AL SUMMARY Matthias Silva ro null, [facility] 5 11:14:11 General examinat ion of patient Completed 200811/06/2013 RECORDED 05/03/19 09 10:20AM BY ZHEGN GALINDO ON/ADDEN DUM Matthias Silva ro null, [facility] 5 11:14:11 Impaired fasting glycemia 543166549 Completed 201211/06/2013 RECORDED 05/03/19 13 9:42AM BY ALIX BRADLEY MA, ANNOTDIXON ON/ADDEN DUM Sy Burgess MD [address], [facility] [place], [address] , [facility] 2 08:05:45 Administ ration of bacteria l and viral vaccine Completed 200811/06/2013 RECORDED 05/03/19 09 10:56AM BY KRISTEN BARAJAS, AMRIT AL SUMMARY Matthias Silva ro null, [facility] 5 11:14:11 Pneumoni a 875739431 Completed 201211/06/2013 RECORDED 05/03/19 13 9:42AM BY ALIX BRADLEY MA, ZHENG ON/ADDEN DUM Matthias Silva ro null, [facility] 5 11:14:11 Pre-surg sanjay evaluati on Completed 201211/06/2013 RECORDED 05/03/19 13 9:41AM BY ALIX BRADLEY MA, ANNOTDIXON ON/ADDEN DUM Matthias Silva ro null, [facility] 5 11:14:11 Canceled operativ e procedur e [id number] Completed 201111/06/2013 DATE: 04/05/19 12; RECORDED 05/03/19 13 9:40AM BY ALIX BRADLEY MA, ANNOTATI ON/ADDEN DUM Matthias GarciaCharleneAlessand ro null, [facility] 5 11:14:11 Urinary tract infectio us disease 51432450 Completed 201211/06/2013 RECORDED 05/03/19 13 9:41AM BY ALIX BRADLEY MA, ANNOTATI ON/ADDEN DUM Matthias Garcia'Alebettyeand ro null, [facility] 5 11:14:11 Uterovag inal prolapse 46932964 Completed 201211/06/2013 RECORDED 05/03/19 13 9:41AM BY ALIX BRADLEY MA, ANNOTATI ON/ADDEN DUM Matthias Garcia'Alemissael ro null, [facility] 5 11:14:11 [facility] l hyperten whitney 15500502 Active 2018 Not Available [facility] 11:59:24 Total hysterec kiko Active Not Available [facility] 11:59:24 Osteopen ia 187521261 Active 2020 manage by [employer]ING TE[employer]ER, Dr. Sampson. Not Available [facility] 11:59:24 Asthma 500098647 Active 2020 Not Available [facility] 11:59:24 Ex-smoke r 5807126 Active 2022 Sy Burgess MD [address] [facility] [place] [place] [address], [facility] [place], [address] , [facility] 3 10:55:53 Problem Notes None recorded. Procedures Surgical History Date Name Laterality Status Provider Name and Address Organization Details Recorded Time 01/17/20 24 Advanced Care Planning completed Sy Burgess MD [address] [facility] [place] [place] [address], [place], [address], [facility] 01/16/2024 16:20:28 07/30/19 24 Mammogram screening completed Khushi lawton MA [facility] 07/03/2024 09:35:41 01/14/20 23 Advanced Care Planning completed Sy Burgess MD [address], [place], [address], [facility] 01/13/2023 08:17:51 07/25/19 23 Most Recent Mammogram completed Khushi lawton MA [facility] 01/13/2023 10:44:57 11/11/19 22 Advanced Care Planning completed Sy Burgess MD [address], [place], [address], [facility] 11/10/2021 08:19:05 08/14/19 22 Date of Last Colonoscopy completed Khushi lawton MA [facility] 11/10/2021 10:19:29 08/14/19 22 Colonoscopy completed Michellezain De Guzman [facility] 11/13/2021 08:35:47 11/09/19 21 Advanced Care Planning completed Khushi lawton MA [facility] 11/08/2020 13:27:58 10/26/19 21 Most Recent Bone Density completed Khushi lawton MA [facility] 11/10/2021 10:25:07 03/29/19 10 Date of Last Pap Smear completed Saundra Tamez [facility] 08/26/2017 10:14:04 Anesth bladder surgery completed Stefanie Pac [facility] 11/08/2020 13:26:29 Dxa bone density rosalio vrt fx completed Julissa Toney MA [facility] 08/07/2016 09:16:05 FOBT completed Khushi lawton MA [facility] 11/08/2020 13:34:01 Total hysterectomy completed Khushi lawton MA [facility] 11/08/2020 13:43:44 Imaging Results Imaging Date Name Status LastModified by Organiz ation Details LastModified Time 07/24/2022 MAMMO, screening, bilateral completed [address] [place], [address], 07/30/2022 15:00:40 07/30/2023 MAMMO, screening, digital, bilateral completed [address] [place], [address], 08/18/2023 08:47:39 Procedure Notes None recorded. Medical Equipment None Reported. Allergies No known drug allergies Medications Name Sig Start Date Stop Date Status Note LastModified by Organization Details LastModified Time amoxicill in 500 mg capsule 08/07 completed Not Available Not Available Not Available latanopro st 0.005 % eye drops INSTILL 1 DROP INTO BOTH EYES AT BEDTIME 01/13 completed Not Available Not Available Not Available atorvasta tin 40 mg tablet TAKE 1/2 TABLET BY MOUTH EVERYDAY AT BEDTIME active Not Available Not Available No t Available clotrimaz ole 10 mg lexi QID 05/24 completed RECORDED 06/03/19 07 8:21PM BY MATTHIAS AGUERO MD, MEDICATI ON AUTO-FABBY CTIVATIO N; Not Available Not Available Not Available prednison e 10 mg tablet DAILY 07/25 completed RECORDED 08/10/19 08 9:12AM BY MATTHIAS AGUERO MD, MEDICATI ON AUTO-FABBY CTIVATIO N; Not Available Not Available Not Available atorvasta tin 20 mg tablet TAKE 1 TABLET BY MOUTH EVERY DAY 04/19 completed Not Available Not Available Not Available nystatin 100,000 unit/gram topical ointment APPLY TO AFFECTED AREA 3 TIMES A DAY active Not Available Not Available No t Available fluconazo le 150 mg tablet 08/07 completed Not Available Not Available Not Available hydrocodo ne 5 mg-acetam inophen 325 mg tablet 08/07 completed Not Available Not Available Not Available ciproflox acin 500 mg tablet 08/07 completed Not Available Not Available Not Available Vitamin C 1,000 mg tablet Take 1 tablet every day by oral route. active Not Available Not Available No t Available erythromy gaudencio 5 mg/gram (0.5 %) eye ointment 08/07 completed Not Available Not Available Not Available brimonidi ne 0.2 % eye drops 11/08 completed Not Available Not Available Not Available lisinopri l 10 mg-hydroc hlorothia zide 12.5 mg tablet TAKE 1 TABLET BY MOUTH EVERY DAY active Not Available Not Available No t Available ibuprofen 600 mg tablet 08/07 completed Not Available Not Available Not Available estradiol 0.01% (0.1 mg/gram) vaginal cream INSERT 0.5 - 1.0 G INTRAVAG INALLY AT NIGHT THREE TIMES PER WEEK active Not Available Not Available No t Available albuterol sulfate HFA 90 mcg/actua tion aerosol inhaler INHALE 2 PUFFS INTO THE LUNGS EVERY 4 HOURS NEEDED FOR 30 DAYS active Not Available Not Available No t Available timolol maleate 0.5 % eye drops INSTILL 1 DROP INTO BOTH EYES TWICE A DAY DIRECTED active Not Available Not Available No t Available loratadin e 10 mg tablet Take 1 tablet every day by oral route as needed. 2006 active Not Available Not Available Not Avai lable albuterol (refill) 90 mcg/actua tion aerosol inhaler FOUR TIMES DAILY, NEEDED 2007 active RECORDED 05/03/19 13 9:42AM BY ALIX BRADLEY MA, OFFICE VISIT; Not Available Not Available Not Available Vitamin D3 25 mcg (1,000 unit) capsule Take 1 capsule every day by oral route. 07/03 completed Not Available Not Available Not Available Multivita min 50 Plus tablet Take 1 tablet every day by oral route. active Not Available Not Available No t Available chlorhexi dine gluconate 0.12 % mouthwash Place 1 applicat ion 3 times a week by mucous mem route as directed for 30 days. 11/10 completed Not Available Not Available Not Available Gavilyte- C 240 gram-22.7 2 gram-6.72 gram-5.84 gram oral solution TAKE 8 GLASSES EVERY 15-20 MINUTES UNTIL DONE DIRECTED 08/08 completed Not Available Not Available Not Available Clinpro 5000 1.1 % dental paste Take 1 applicat ion every day by dental route in the evening for 30 days. active Not Available Not Available No t Available Vitamin D3 50 mcg (2,000 unit) capsule Take 1 capsule every day by oral route. active Not Available Not Available No t Available Fish Oil 1,000 mg (120 mg-180 mg) capsule Take 1 capsule every day by oral route. active Not Available Not Available No t Available Vyzulta 0.024 % eye drops INSTILL 1 DROP INTO BOTH EYES EVERY DAY AT NIGHT active Not Available Not Available No t Available QuickVue At-Home COVID-19 Test kit TEST DIRECTED 07/13 completed Not Available Not Available Not Available Vitals Date Recorded Body height Body mass index (BMI) Body weight Heart rate Oxygen saturation Oxygen saturation in Arterial blood by Pulse oximetry Body temperature Systolic blood pressure Diastolic blood pressure Provider Name and Address Organization Details Last Updated DateTime 3 154.94 cm 26.8 kg/m2 03007.1 2 g 87 /min 96 % 96 % 97.6 [degF] 103 mm[Hg] 68 mm[Hg] Khushi grijalva MA [facility] 3 09:35:42 Date Recorded Body height Body mass index (BMI) Body weight Heart rate Oxygen saturation Oxygen saturation in Arterial blood by Pulse oximetry Body temperature Systolic blood pressure Diastolic blood pressure Provider Name and Address Organization Details Last Updated DateTime 3 154.94 cm 27 kg/m2 44719.7 1 g 75 /min 98 % 98 % 98.2 [degF] 107 mm[Hg] 69 mm[Hg] Khushi grijalva MA [facility] 3 10:41:22 Date Recorded Body height Body mass index (BMI) Body weight Oxygen saturation Oxygen saturation in Arterial blood by Pulse oximetry Heart rate Body temperature Systolic blood pressure Diastolic blood pressure Provider Name and Address Organization Details Last Updated DateTime 4 154.94 cm 27.4 kg/m2 05579.8 9 g 98 % 98 % 70 /min 97.9 [degF] 106 mm[Hg] 62 mm[Hg] Andreea Guzman MA [facility] 4 13:50:16 Date Recorded Body height Body mass index (BMI) Body weight Heart rate Oxygen saturation Oxygen saturation in Arterial blood by Pulse oximetry Body temperature Systolic blood pressure Diastolic blood pressure Provider Name and Address Organization Details Last Updated DateTime 4 154.94 cm 26.3 kg/m2 62673.3 4 g 69 /min 97 % 97 % 97.6 [degF] 103 mm[Hg] 68 mm[Hg] Khushi grijalva MA [facility] 4 09:42:13 Date Recorded Body height Body mass index (BMI) Body weight Heart rate Oxygen saturation Oxygen saturation in Arterial blood by Pulse oximetry Body temperature Systolic blood pressure Diastolic blood pressure Provider Name and Address Organization Details Last Updated DateTime 5 154.94 cm 25.1 kg/m2 10907.7 9 g 58 /min 99 % 99 % 97.6 [degF] 125 mm[Hg] 79 mm[Hg] Khushi grijalva MA [facility] 5 09:41:43 Social History Question Answer Notes LastModified by Organizat ion Details LastModified Time Tobacco Smoking Status [facility] 11:00:02 Do You Have An Advance Directive? Yes Information not available 11/08/2020 Is Blood Transfusion Acceptable In An Emergency? Yes Information not available 03/01/2015 What Is Your Level Of Caffeine Consumption? Moderate 2 Cups Of Coffee A Day Information not available 03/01/2015 How Much Tobacco Do You Chew? None Information not available 11/08/2020 What Type Of Diet Are You Following? REGULAR Information not available 03/01/2015 When Did You Quit Smoking? 11-15yearssi vanessa arroyo Information not available 11/08/2020 Do You Take Precautions To Prevent Distracted Driving? Yes Information not available 03/01/2015 How Often Do You Need To Have Someone Help You When You Read Instructions, Pamphlets, Or Other Written Material From Your Doctor Or Pharmacy? Never Information not available 03/01/2015 Have You Served In The ? No abolcun Information not available 08/07/2016 Have You Or Anyone In Your Household Had Any Of The Following Symptoms In The Last 14 Days: Sore Throat, Cough, Chills, Body Aches For Unknown Reasons, Shortness Of Breath For Unknown Reasons, Loss Of Smell, Loss Of Taste, Fever At Or Greater Than 100 Degrees Fahrenheit? No Information not available 11/08/2020 Are You Or Anyone In Your Household A Health Care Provider Or Emergency Responder? Yes Information not available 11/08/2020 To The Best Of Your Knowledge Have You Been In Close Proximity To Any Individual Who Tested Positive For COVID-19? No Information not available 11/08/2020 *AWV ONLY* Are You Presently Prescribed Opioid Medication By PCP Or Specialist? If YES -Provider Assess The Benefit For Other, Non-opioid Pain Therapies Instead, Even If The Patient Does Not Have OUD But Is Possibly At Risk. No Information not available 11/08/2020 Have You Recently Traveled To A COVID-19 High Risk Area Or Gathering In The Last 10 Days? No Information not available 11/08/2020 What Was The Date Of Your Most Recent Tobacco Screening? 07/03/2024 Information not available 07/03/2024 How Many Children Do You Have? 2 Eliud (daughter) Kyle Guido Information not available 11/10/2021 What Is Your Current Pack Years? 20-29packyea rs Information not available 11/08/2020 Do You Use Your Seat Belt Or Car Seat Routinely? Yes Information not available 11/08/2020 Are You Sexually Active? Yes Jermaine Information not available 01/13/2023 Do You Have Smoke And Carbon Monoxide Detectors In Your Home? Yes Information not available 11/08/2020 At What Age Did You Start Smoking Tobacco? 12 Information not available 11/08/2020 Are You Passively Exposed To Smoke? No Information not available 03/01/2015 How Much Tobacco Do You Smoke? 0.5 PPD Information not available 11/08/2020 Do You Use Sunscreen Routinely? Yes Information not available 03/01/2015 How Many Years Have You Smoked Tobacco? 45 Information not available 11/08/2020 Sex: Unknown Functional Status Question Answer Note LastModified by Organizat ion Details LastModified Time Do you use any illicit or recreational drugs? No Information not available 11/08/2020 Do you or have you ever used any other forms of tobacco or nicotine? No Information not available 11/08/2020 What is your level of alcohol consumption? Occasional Information not available 03/01/2015 Do you or have you ever used smokeless tobacco? 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 YESWOREST Information not available 11/08/2020 Are you able to care for yourself? Yes Information not available 03/01/2015 What is your occupation? nurse Information not available 05/15/2022 Do you or have you ever used e-cigarettes or vape? Never used electronic cigarettes Information not available 11/08/2020 What is your exercise level? Moderate daily walking Information not available 11/08/2020 Mental Status None recorded. Family History Relationship Description Onset Age of this Age Resolved Age Notes LastModified by Organization Details LastModified Time Father Malignant tumor of colon 72 mdalessandro Not available 06/2014 11:36:38 Mother General health good 86/201 5// Bipola r/live s at [facility] d towers /smoke s/ Mother seeing psychi atry Not available 11/08/2020 13:26:29 Sister Essential hypertension 66/ 2 sister s w/ HTN Not available 11/08/2020 13:26:29 Sister Malignant tumor of pancreas ckokar Not available 2021 10:40:24 Sister Carcinoma of urinary bladder ckokar Not available 2021 10:40:37 Notes:siblings are alive/ th ey do not help w/ Mom. Medical History Condition Response Other Y Hypertension Y Asthma Y High Cholesterol Y Gynecological History Statement/Question Response Menses Monthly N Date of Last Pap Smear 03/29/2009 Current Control Method Hysterectom y Date of Last Colonoscopy 08/13/2021 Most Recent Mammogram 07/24/2022 Most Recent Bone Density 10/25/2020 Obstetrics History GPAL:G 0 P 0 0 0 0 Immunizations Vaccine Type Date Status Note Provider Nam e and Address Organization Details Recorded Time Influenza, split virus, quadrivalent, preservative 6 completed Michelle baker [facility] 01/30/2021 09:06:46 Influenza, high-dose, trivalent, PF 0 completed Michelle baker [facility] 01/30/2021 09:06:46 COVID-19, mRNA, LNP-S, PF, 100 mcg/0.5mL dose or 50 mcg/0.25mL dose 1 completed Michelle baker [facility] 01/30/2021 09:06:46 COVID-19, mRNA, LNP-S, PF, 100 mcg/0.5mL dose or 50 mcg/0.25mL dose 1 completed Michelle baker [facility] 01/30/2021 09:06:46 COVID-19, mRNA, LNP-S, PF, 100 mcg/0.5mL dose or 50 mcg/0.25mL dose 1 completed LISANDRO Ospina [facility] 11/10/2021 10:17:56 Tdap 7 completed LISANDRO Ospina [facility] 11/10/2021 10:17:56 pneumococcal [facility] PPV23 [facility] 10:17:56 influenza, unspecified formulation 2 completed LISANDRO Ospina, [facility] 01/13/2023 10:41:34 COVID-19, mRNA, LNP-S, bivalent, PF, 30 mcg/0.3 mL dose 2 completed LISANDRO Ospina, [facility] 01/13/2023 10:41:34 Influenza, high-dose, quadrivalent, PF 3 completed LISANDRO Ospina, [facility] 01/13/2023 10:42:11 COVID-19, mRNA, LNP-S, PF, 50 mcg/0.5 mL 3 completed LISANDRO Espinal [facility] 07/14/2023 13:45:43 COVID-19, mRNA, LNP-S, PF, 50 mcg/0.5 mL 4 completed LISANDRO Ospina [facility] 01/17/2024 09:36:29 Influenza, high-dose, trivalent, PF 4 completed LISANDRO Ospina [facility] 01/17/2024 10:23:31 Td (adult), 2 Lf tetanus toxoid, preservative free, adsorbed 1 completed Michellemarek baker [facility] 01/30/2021 09:06:46 Influenza, split virus, trivalent, preservative 8 completed Michelle De Guzmanmarek baker [facility] 01/30/2021 09:06:46 Tdap 6 completed Michellemarek baker [facility] 01/30/2021 09:06:46 Past Encounters Encounter ID Performer Location Encounter Start Date Encounter Closed Date Diagnosis/Indication Diagnosis SNOMED-CT Code Diagnosis ICD10 Code Diagnosis Note [id number] [facility] [address] [facility] [address] [facility] LISANDRO hernandez [address] 05/14/2006 00:00:00 [id number] [facility] [place] [address],[place] [address] [place] [address] 05/14/2006 00:00:00 [id number] [employer] [place] [address],[place] [address] [place] [address] 05/14/2006 00:00:00 [id number] [facility] er[facility] [address],[place] [address] [place] [address] 04/30/2006 00:00:00 [id number] [facility] erce [address],[place] [address] [place] [address] 06/15/2005 00:00:00 [id number] [facility] erce [address],[place] [address] [place] [address] 06/15/2005 00:00:00 [id number] [facility] erce [address] [facility],[place] [address] [place] [address] 06/15/2005 00:00:00 [id number] [facility] erce [address] [facility],[place] [address] [place] [address] 05/01/2006 00:00:00 [id number] [facility] erce [address] [facility],[place] [address] [place] [address] 05/01/2006 00:00:00 [id number] [facility] erce [address] [facility],[place] [address] [place] [address] 02/26/2005 00:00:00 [id number] [facility] erce [address] [facility],[place] [address] [place] [address] 02/26/2005 00:00:00 [id number] auto[employer]Comm erce [address] [facility],[place] [address] [place] [address] 09/23/2006 00:00:00 [id number] auto[facility] erce [address] [facility],[place] [address] [place] [address] 09/23/2006 00:00:00 [id number] [facility] erce [address],[place] [address] [place] [address] 12/06/2006 00:00:00 [id number] auto[employer]Comm erce [address],[place] [address] [place] [address] 12/06/2006 00:00:00 [id number] auto[employer] erce [address],[place] [address] [place] [address] 12/30/2006 00:00:00 [id number] auto[employer]Comm erce [address] [address] [place] [address] 12/30/2006 00:00:00 [id number] auto[facility] erce [address],[place] [address] [place] [address] 04/28/2007 00:00:00 [id number] [facility] erce [address],[place] [address] [place] [address] 07/21/2007 00:00:00 [id number] [employer] erce [address] [facility],[place] [address] [place] [address] 07/21/2007 00:00:00 [id number] [facility] erce [address] [facility],[place] [address] [place] [address] 05/03/2008 00:00:00 [id number] auto[facility]Comm erce [address] [facility],[place] [address] [place] [address] 12/16/2009 00:00:00 [id number] autoEComm erce [address] [facility],[place] [address] [place] [address] 12/16/2009 00:00:00 [id number] autoEComm erce [address] [facility],[place] [address] [place] [address] 05/03/2012 00:00:00 [id number] Matthias tanner MD Main Office [address] [facility] [address] [place] [address] 03/01/2015 10:39:20 03/01/2015 11:41:24 Adult health examination 458795526 Z00.00 Screening for malignant neoplasm of breast 172577994 Z12.39 Screening for malignant neoplasm of colon 407431281 Z12.11 Elevated blood-pressure reading without diagnosis of hypertension 972739165 R03.0 Hyperlipidemia 59178987 E78.5 [id number] Matthias tanner MD Main Office [address] [address] [place] [address] 08/07/2016 08:55:25 08/07/2016 09:53:26 Adult health examination 352512079 Z00.00 Administra tion of viral vaccine 23326543 Z23 Family his tory of cancer of colon 281352180 Z80.0 [id number] Matthias tanner MD Main Office [address] [address] [place] [address] 03/16/2017 14:28:20 03/16/2017 15:52:29 Essential hypertension 23785613 I10 I agree w/ pt that at this time I want more data about home bp readings and we will consider meds in 2018 [id number] Matthias tanner MD Main Office [address] [place] [address] [place] [address] 05/04/2017 15:12:38 05/04/2017 16:29:21 Essential hypertension 25360730 I10 Impaired f asting glycemia 984642874 R73.01 [id number] Matthias tanner MD Main Office [address] [place] [address] [place] [address] 08/06/2017 10:00:11 08/06/2017 10:42:40 Exposure to communicable disease 964593252 Z20.9 Essential hypertension 94870545 I10 Impaired f asting glycemia 161778399 R73.01 [id number] Deyanira Weldon PA-C Main Office [address] [address] [place] [address] 04/08/2018 12:59:04 04/08/2018 14:04:03 Adult health examination 118559257 Z00.00 Will discuss scheduling bone density study with [employer] Screening for malignant neoplasm of breast 146391977 Z12.39 Screening for malignant neoplasm of cervix 916944550 Z12.4 Dr. Sampson at [facility] is her [employer]. She states that she had a hysterecto my and doesn't have PAP anymore, but she will schedule her annual appt. Impaired f asting glycemia 828146825 R73.01 Pt is aware of her condition, and plans to alter her diet. Hyperlipidemia 89879439 E78.00 Pt is aware that prediabete s raises risks of adverse outcomes related to her HLD. She refuses to start a statin, plans to pursue alternativ e treatment with cholester off . Highly recommende d a statin to her. Essential hypertension 63169006 I10 Stable on current medication Screening for malignant neoplasm of colon 103194318 Z12.11 Patient is very reluctant to have this procedure. After some convincing she states that she will look into it on her own ir at least will have cologuard done. [id number] Darryl Garcia MD Main Office [address] [facility] [address] [facility] [place] [address] 09/05/2019 12:49:40 09/05/2019 13:54:02 Adult health examination 159296196 Z00.00 Will discuss scheduling bone density study with [employer] Essential hypertension 67197198 I10 Stable on current medication Hyperlipidemia 62099351 E78.00 Retest lipids fasting and initiate statin therpay if LDL still elevated. Pt. refused statins last year. Impaired f asting glycemia 914133707 R73.01 Pt is aware of her condition, and plans to alter her diet.retes t fasting glucose and A1c. Vitamin D deficiency 347 48689 E55.9 retest Vit D levels. Screening for malignant neoplasm of colon 248077334 Z12.11 Patient is very reluctant to have this procedure. After some convincing she states that she will book it this time. [id number] Sy Burgess MD Main Office [address] [facility] [address] [facility] [place] [address] 11/08/2020 13:26:05 11/08/2020 14:32:00 Adult health examination 005804280 Z00.00 Patient was counseled on healthy diet, exercise and nutrition due to Body mass index is 26.3 kg/m? ? ?. Last Colonoscop y:Date:Res ult:Plan: due wants to be seen by Ronda Cortés Last Mammogram: Date: 05/24/2020 esult: BIRAD-1Pla n:repeat in 1-2yrs Pap smears/p hysterecto my Bone density scanDate:R esult: Osteopenia Plan: obtain results from Obgyn office, records requested Vaccines:T dAP: 08/07/16Zos ter: script given for pharmacyPP SV23: 11/08/20Inf luenza: 12/28/2019C ovid: 03/29/20, 04/27/20 Routine labs today Immunizati on status reviewed. Will screen based on risk factors. Regular dental and ophtho care advised as well as seat belt and sunscreen use. Distracted driving discussed. Medication reconciled . Fatigue 61890578 R53.83 Hyperlipidemia 18582235 E78.5 Impaired f asting glycemia 577069536 R73.01 Advance di rective discussed with patient 457931526 Z71.89 Menopause present 906642 006 Z78.0 Administra tion of pneumococcal vaccine 64632885 Z23 Screening for malignant neoplasm of colon 892245850 Z12.11 Varicella vaccination 68 108383 Z23 [id number] Sy Burgess MD Main Office [address] [facility] [address] [place] [address] 08/08/2021 10:39:35 08/08/2021 11:25:51 Essential hypertension 13528126 I10 Low sodium diet discussedC ounseled on medication adherenceC ounseled on diet/exerc iseAdvised to keep BP daily BP log and technique counseled. Red flags of HTN emergency discussed and when to go to ED. Hyperlipidemia 99037622 E78.5 Osteopenia 449601698 M85 .80 Fatigue 51619635 R53.83 [id number] Sy Burgess MD Main Office [address] [facility] [address] [facility] [place] [address] 11/10/2021 09:57:19 11/10/2021 10:57:21 Adult health examination 680829600 Z00.00 Patient was counseled on healthy diet, exercise and nutrition due to Body mass index is 27 kg/m? ? ?. Last Colonoscop y:Date:Res ult:Plan: Notes had done this year WNL recall 10yrs will try to get records. Last Mammogram: Date: 07/18/21Res ult: BIRAD-1Pla n: repeat annually Pap smears/p hysterecto my Bone density scanDate:R esult: Osteopenia Plan: obtain results from Obgyn office, records requested Vaccines:T dAP: 08/07/16Zos ter: script given for pharmacy last visit.PPSV 23: 11/08/20PCV 20: Script providedIn [place]: gets work.Covid : 03/29/20, 04/27/20, 01/24/21, discussed 2nd booster dose. Routine labs reviewed. Immunizati on status reviewed. Will screen based on risk factors. Regular dental and ophtho care advised as well as seat belt and sunscreen use. Distracted driving discussed. Medication reconciled . Advance di rective discussed with patient 490191266 Z71.89 Administra tion of pneumococcal vaccine 98200593 Z23 [id number] Sy Burgess MD Main Office [address] [facility] [address] [place] [address] 05/15/2022 09:28:52 05/15/2022 09:50:24 Essential hypertension 04703183 I10 Low sodium diet discussedC ounseled on medication adherenceC ounseled on diet/exerc iseAdvised to keep BP daily BP log and technique counseled. Red flags of HTN emergency discussed and when to go to ED. [id number] Sy Burgess MD Main Office [address] [facility] [address] [place] [address] 01/13/2023 10:29:31 01/13/2023 11:09:51 Adult health examination 446330395 Z00.00 Patient was counseled on healthy diet, exercise and nutrition due to Body mass index is 27 kg/m? ? ?. Last Colonoscop y:Date: 08/13/21Res ult: no polypsPlan : Notes had done this year WNL recall 10yrs will try to get records. Last Mammogram: Date: 07/24/22Res ult: BIRAD-1Pla n: repeat annually Pap smears/p hysterecto my Bone density scanDate: 10/25/20Res ult: Osteopenia Plan: consider repeat next year. Vaccines:T dAP: 08/07/16Zos ter: script given for pharmacy last visit.PPSV 23: 11/08/20PCV 20: Script provided again.RSV: AdvisedInf luenza: 12/28/2022 Covid: 03/29/20, 04/27/20, 01/24/21, 02/02/2022 bivalent, 12/28/2022 updated vax. Routine labs reviewed. Immunizati on status reviewed. Will screen based on risk factors. Regular dental and ophtho care advised as well as seat belt and sunscreen use. Distracted driving discussed. Medication reconciled . Advance di rective discussed with patient 326345862 Z71.89 Administra tion of pneumococcal vaccine 09807535 Z23 Fatigue 71541352 R53.83 Z00.00 Hyperlipidemia 22349217 E78.5 Z00.00 Varicella vaccination 68 954056 Z23 Essential hypertension 48500755 I10 bp well controlled with current regimen. Asthma 101020534 J45.90 9 Body mass index 25-29 - overweight 613781371 E66.3 Z68.25 cont. regular exercise and diet. Overweight 352795350 E66 .3 [id number] Sy Burgess MD Main Office [address] [facility] [address] [facility] [place] [address] 07/14/2023 13:43:01 07/14/2023 14:03:12 Essential hypertension 69792530 I10 bp well controlled with current regimen. [id number] Sy Burgess MD Main Office [address] [facility] [address] [facility] [place] [address] 01/17/2024 09:30:10 01/17/2024 10:14:57 Adult health examination 792697256 Z00.00 Patient was counseled on healthy diet, exercise and nutrition due to Body mass index is 26.3 kg/m? ? ?. Last Colonoscop y:Date: 08/13/21Res ult: no polypsPlan : Notes had done this year WNL recall 10 yrs will try to get records. Last Mammogram: Date: 07/30/23Resu lt: BIRAD-1Pla n: repeat annually Pap smears/p hysterecto my Bone density scanDate: 10/25/20Res ult: Osteopenia Plan: Wants to hold and wait ~5yrs. Vaccines:T dAP: 08/07/16Zos ter: script given againPPSV2 3: 11/08/20PCV 20: Script provided again.RSV: Advised at 75Influenz a: 01/17/24Co vid: 12/13/23 Routine labs reviewed. Immunizati on status reviewed. Will screen based on risk factors. Regular dental and ophtho care advised as well as seat belt and sunscreen use. Distracted driving discussed. Medication reconciled . Advance di rective discussed with patient 543531282 Z71.89 Fatigue 96175182 R53.83 Z00.00 Hyperlipidemia 64317896 E78.5 Z00.00 FASTING Influenza vaccine needed 9871812200 106 Z23 65 YEARS AND OLDER Essential hypertension 64887963 I10 bp well controlled with current regimen. [id number] Sy Burgess MD Main Office [address] [facility] [place] [address] 07/03/2024 09:28:08 07/03/2024 10:05:37 Essential hypertension 25037053 I10 bp well controlled with current regimen. Hyperlipidemia 25820424 E78.5 Z00.00 Had not increased statin, advised to start repeat lft 1 mo with, lipids. Prediabetes 907605742 R7 3.03 Vitamin D deficiency 347 29178 E55.9 Thoracic back pain 69687 8004 M54.6 No cva tenderness denies urine sx.Wants to work on exercises. decline analgesic or msk relaxant.R ed flag discussed. She will call if she wants pt. Health Concerns Section Related Observation LastModified by Organization Detai ls LastModified Time None Recorded Concern Status LastModified by Organization Details LastModified Time None Recorded Advance Directives Directive Y: Payers Encounter Date Sequence Insurance Name Policy Number Policy Steinberg Covered Member ID Steinberg Member ID Guarantor Name 05/15/2022 1 [facility]: [place] (MEDICARE REPLACEMENT PPO) [id number] [facility] Gonsor [id number] [facility] Gonsor 01/13/2023 1 [place]MEDICARE [place]AC[place] PPO) [id number] [facility] Gonsor [id number] [facility] Gonsor 07/14/2023 1 [place]MED[place] PPO) [id number] [facility] Gonsor [id number] [facility] Gonsor 01/17/2024 1 [place] PPO) [id number] Ravencourtney Shepherdsor [id number] Raven Shepherdsor 07/03/2024 1 [facility] (MEDICARE [place]PLACEMENT PPO) [id number] Raven Shepherdsor [id number] Raven Rivera Notes Date Note Type Note Provider Name and Address Organization Details Recorded Time 05/15/19 text/htm l Hypertension F/UReported bypatient.Associated Symptoms:no dizziness; no lightheadedness; no chest pain; no shortness of breath; no palpitations; no edema; no calf pain with exertion Lifestyle:regular exercise; exercises 7 times/week; exercises for 30 minutes/day; limiting/avoiding salt Medications:taking medications as directed; no side effects from medication; checks blood pressure at home, range: (below 130/90) Sy Burgess MD [address], [address], [facility] 05/15/2022 09:48:11 01/14/20 text/htm l Generic HPI TemplateReported bypatient.Notes: Medicare Annual Wellness VisitReported bypatient.Diet and Nutrition:healthy diet Fracture Risk:no history of fractures Physical Activity:exercises on a regular basis; good physical condition Depression Risk:See screening Speech/Motor difficulties:no speech difficulties Hearing:no loss of hearing Vision:no vision problems Activities of Daily Living:able to bathe with limited or no assistance; able to contol urination and bowels; able to dress with limited or no assistance; able to feed self with limited or no assistance; able to get out of chair or bed with limited or no assistance; able to groom with limited or no assistance; able to toilet with limited or no assistance Instrumental Activities of Daily Living:able to do house work with limited or no assistance; able to grocery shop with limited or no assistance; able to manage medications with limited or no assistance; able to manage money with limited or no assistance; able to prepare meals with limited or no assistance; able to use the phone with limited or no assistance Falls Risk Assessment:no fall in the past year Home Safety:reviewed sun protection; no unsafe stairs; working smoke/CO detectors; use of seatbelts; no fire arms; good lighting in the home Here for wellness visit. Reviewed chronic medications and medical problems. Discussed screening guidelines as well as goals for fitness and weight management. Sy Burgess MD [address] [address], [place], [address], [facility] 01/13/2023 11:08:01 07/14/19 24 text/htm l Hypertension F/UReported bypatient.Associated Symptoms:no dizziness; no lightheadedness; no chest pain; no shortness of breath; no palpitations; no edema; no calf pain with exertion Lifestyle:regular exercise; exercises 7 times/week; exercises for 60 minutes/day; limiting/avoiding salt Medications:taking medications as directed; no side effects from medication; checks blood pressure at home, range: (below 130/90) Sy Burgess MD [address] [address], [place], [address], [facility] 07/14/2023 14:01:09 01/17/20 24 text/htm l Generic HPI TemplateReported bypatient.Notes: Medicare Annual Wellness VisitReported bypatient.Diet and Nutrition:healthy diet Fracture Risk:no history of fractures Physical Activity:exercises on a regular basis; good physical condition Depression Risk:See screening Concentration and Memory:no memory lapses or loss Speech/Motor difficulties:no speech difficulties Hearing:no loss of hearing Vision:no vision problems Activities of Daily Living:able to bathe with limited or no assistance; able to contol urination and bowels; able to dress with limited or no assistance; able to feed self with limited or no assistance; able to get out of chair or bed with limited or no assistance; able to groom with limited or no assistance; able to toilet with limited or no assistance Instrumental Activities of Daily Living:able to do house work with limited or no assistance; able to grocery shop with limited or no assistance; able to manage medications with limited or no assistance; able to manage money with limited or no assistance; able to prepare meals with limited or no assistance; able to use the phone with limited or no assistance Falls Risk Assessment:no fall in the past year Home Safety:no unsafe stairs; working smoke/CO detectors; use of seatbelts; no fire arms; good lighting in the home Here for wellness visit. Reviewed chronic medications and medical problems. Discussed screening guidelines as well as goals for fitness and weight management. Eating healthier and increased activity some weight loss. Sy Burgess MD [address] [address], [place], [id number], [facility] 01/17/2024 10:12:50 07/04/19 25 text/htm l Back PainReported bypatient.Location:pain is not radiating Quality:pulling Severity:worsening Duration:intermittent Onset/Timing:few weeks. Context:overuse Alleviating Factors:rest Aggravating Factors:movement/positioning;twi sting Associated Symptoms:no fever; no weak limbs; no numbness of the legs/feet; no tingling; no incontinence; no shortness of breathHyperlipidemiaReported bypatient.Type of hyperlipidemia:hypercholesterole [place] Control:not at goal Compliance:compliant with diet; exercises Complications:no coronary artery disease; no peripheral artery disease; no cardiovascular diseaseHypertension F/UReported bypatient.Associated Symptoms:no dizziness; no lightheadedness; no chest pain; no shortness of breath; no palpitations; no edema; no calf pain with exertion Lifestyle:regular exercise; exercises 7 times/week; exercises for 60 minutes/day; limiting/avoiding salt Medications:taking medications as directed; no side effects from medication; checks blood pressure at home, range: (below 130/90) Sy Burgess MD [address] [address], [place], [id number], [facility] 07/03/2024 10:04:07 OBGyn Episode No OBEpisode recorded.
== END 2024-08-14 07:27 | disposition home or self-care (01) ==
LOC: HO.MAMMO 07:26
PROVIDERS: PCP Family Medicine; Visit Provider Family Medicine
DX: Z12.31 Encounter for screening mammogram for malignant neoplasm of breast (principal)
CPT/HCPCS: 77063; 77067

== ENCOUNTER → 2024-08-14 07:30 | Outpatient (BNV) | payer MEDICARE, SELFPAY | PROVIDERS: PCP Family Medicine; Visit Provider Internal Medicine | DX: Z12.31 Encounter for screening mammogram for malignant neoplasm of breast (principal) | CPT/HCPCS: 77063; 77067 ==